=== PATIENT | male | born 1970 | race Caucasian/White ===

== ENCOUNTER → 2016-09-24 | Outpatient (CLI) | payer OTHER ==
[~2016-09-24] MED LIST: TRAM-10 PO
--- NOTE | 2016-09-24 11:22 | DIAGNOSTIC IMAGING REPORT ---
LEFT SHOULDER MIN 2 VIEWS ROUTINE CLINICAL HISTORY: LEFT SHOULDER PAIN COMPARISON: None. DISCUSSION: No fractures or dislocations are visualized. There are no visible periarticular calcifications. IMPRESSION: Unremarkable conventional radiographic evaluation of the left shoulder. Electronically signed by: Clarence Wolf M.D. 09/24/2016 11:21 AM Dictated Date/Time: 09/24/2016 11:21 AM
== END | disposition home or self-care (01) ==
LOC: C.RAD1850 10:46
PROVIDERS: ATTEND Nurse Practitioner Family
DX: M25.512 Pain in left shoulder (principal); X58.XXXA Exposure to other specified factors, initial encounter; Y99.0 Civilian activity done for income or pay

== ENCOUNTER → 2016-09-25 | Outpatient (CLI) | payer OTHER ==
--- NOTE | 2016-09-25 09:42 | DIAGNOSTIC IMAGING REPORT ---
MRI OF THE LEFT SHOULDER WITHOUT CONTRAST CLINICAL HISTORY: Left shoulder pain with decreased range of motion. Work injury. COMPARISON STUDY: Left shoulder radiographs September 24, 2016. TECHNIQUE: Utilizing 1.5 Malini magnet and dedicated coil, multiplanar, multiecho imaging of the left shoulder was performed without intravenous or intra-articular contrast. FINDINGS: Alignment of the left shoulder is anatomic. There is no marrow replacement. Mild edema within the distal left clavicle is noted. There is mild arthritis of the left acromioclavicular joint. The proximal long head of the biceps tendon is intact. There is no full-thickness rotator cuff tear. Mild intermediate signal within distal supraspinatus and infraspinatus suggests tendinopathy. There is no tendon retraction or muscular atrophy. There is a tear of the posterior superior labrum. IMPRESSION: 1. Tear of the posterior superior glenoid labrum. 2. No full-thickness rotator cuff tear. Mild tendinopathy of supraspinatus and infraspinous. 3. Mild osteoarthritis of the left acromioclavicular joint. Electronically signed by: Jose Shaikh M.D. 09/25/2016 9:41 AM Dictated Date/Time: 09/25/2016 8:43 AM
== END | disposition home or self-care (01) ==
LOC: C.MRI 07:34
PROVIDERS: ATTEND Nurse Practitioner Family
DX: M25.512 Pain in left shoulder (principal); M25.612 Stiffness of left shoulder, not elsewhere classified